=== PATIENT | male | born 1945 | race Caucasian/White ===

== ENCOUNTER 2023-08-28 13:04 | Inpatient (IN) | payer OTHER, MEDICAID ==
[~2023-08-28] VITALS: Ht 177.8 cm; Wt 63.0 kg
[~2023-08-28 13:04] MED LIST: ACET325T PO; AMIN30LI2 GT; AMIO200T66 GT; ASCO500T20 GT; BISA-79 PO; CHLO473M5 PO; COLL100 GT; DILT30TA35 PO; DIPH25CA83 GT; FINA-37 GT; GLUC1KIT IJ; HYT1 GT; IPRA3AMP9 INH; LACEYEO GT; MIDO10TA GT; MOM PO; MULT-1089 PO; NA P133E41 RC; NYST15PO2 TP; POLY17PO4 PO; SSNOVOLOG SUBCUT; ZINC100T2 GT; [UNRECOGNIZED DRUG - CODE] IV
[2023-08-28 13:05] VITALS: BP_SYST 126; PULSE 77; RESP 16; TEMP 98; O2SAT 98
[2023-08-28] MEDS ORDERED: IPRA3AMP9 INH (13:55)
[2023-08-28] MEDS ORDERED: TRAM50TA2 GT (13:55)
[2023-08-28 14:34] LABS: BASOPHILS % (AUTO) 0.2 % (0.0-2.0); EOSINOPHILS # (AUTO) 0.4 K/uL (0.0-0.4); EOSINOPHILS % (AUTO) 2.2 % (0.0-4.0); HEMATOCRIT 35.8 % (36-54); LYMPHOCYTES # (AUTO) 1.2 K/uL (1.0-5.5); LYMPHOCYTES % (AUTO) 6.3 % (20.5-51.5); MEAN CORPUSCULAR HEMOGLOBIN 28 pg (27-31); MEAN CORPUSCULAR HGB CONC 31 % (32-36); MEAN CORPUSCULAR VOLUME 91 fL (79.0-98.0); MONOCYTES % (AUTO) 5.7 % (1.7-9.3); NEUTROPHILS # (AUTO) 15.7 K/uL (1.8-7.7); NEUTROPHILS % (AUTO) 85.6 % (40.0-70.0); PLATELET COUNT (AUTO) 478 K/uL (130-430); RED BLOOD CELL COUNT(AUTO) 3.93 MIL/uL (4.2-6.2); RED CELL DISTRIBUTION WIDTH 19.6 % (9.0-15.0); WHITE BLOOD COUNT (AUTO) 18.4 K/uL (4.8-10.8)
[2023-08-28 14:57] LABS: PROTHROMBIN TIME 10.8 SECS (9.5-12.5)
[2023-08-28 15:06] LABS: ALBUMIN 2.4 g/dL (3.4-4.8); ANION GAP 11 (5-15); ASPARTATE AMINOTRANSFERASE 11 U/L (10-37); CALCIUM 11.6 mg/dL (8.4-11.0); CARBON DIOXIDE 24 mmol/L (23-29); CHLORIDE 115 mmol/L (98-107); CREATININE 2.76 mg/dL (0.55-1.30); GLUCOSE 127 mg/dL (74-106); POTASSIUM 5.6 mmol/L (3.5-5.1); SODIUM SERUM 150 mmol/L (136-145); TOTAL BILIRUBIN 0.2 mg/dL (0.0-1.0); TOTAL PROTEIN, SERUM 8.3 g/dL (6.4-8.3)
[2023-08-28 15:10] LABS: UREA NITROGEN, BLOOD 188 mg/dL (8-21)
[2023-08-28 15:33] LABS: ALANINE AMINOTRANSFERASE 13 U/L (12-78)
[2023-08-28] MEDS ORDERED: PIPERACILLIN/TAZO 4.5 GM in NS 100 ML IV ONE (15:45)
[2023-08-28] MEDS ORDERED: SODIUM POLYSTYRENE SULFONATE 15 GM/60 ML UDBTL PO ONE (15:45)
[2023-08-28] MEDS ORDERED: NS 500 ML IV ONE (15:45)
[2023-08-28] MEDS ORDERED: PIPERACILLIN/TAZOBACTAM 4.5 GM/VIAL (ZOSYN) IV ONE (16:25)
[2023-08-28] MEDS ORDERED: cefTRIAXone 1 GM VIAL IM ONE (17:00)
[2023-08-28] MEDS ORDERED: cefTRIAXone 1 GM in D5W 50 ML IV ONE (19:00)
[2023-08-28] MEDS ORDERED: cefTRIAXone 1 GM VIAL ONE (19:39)
[2023-08-28] MEDS: D5W 1,000 ML IV SCH (19:55)
[2023-08-28] MEDS ORDERED: SODIUM POLYSTYRENE SULFONATE 15 GM/60 ML UDBTL GT ONE (20:00)
[2023-08-28 20:45] VITALS: BP_SYST 124; PULSE 79; RESP 16; TEMP 97.5; O2SAT 98
[2023-08-28 21:11] VITALS: PULSE 79
[2023-08-28 21:14] VITALS: BP_SYST 104; PULSE 76; O2SAT 99
[2023-08-28 22:00] VITALS: O2SAT 98
[2023-08-28 23:43] VITALS: PULSE 82
[2023-08-29] VITALS (17 sets, daily range): BP systolic 118–131; PULSE 73–84; RESP 16–18; TEMP 97.3–98; O2SAT 95–99
[2023-08-29] MEDS ORDERED: cefTRIAXone 1 GM VIAL IM SCH (09:00)
[2023-08-29 09:25] LABS: BASOPHILS # (AUTO) 0.1 K/uL (0.0-0.2); BASOPHILS % (AUTO) 0.4 % (0.0-2.0); EOSINOPHILS # (AUTO) 0.3 K/uL (0.0-0.4); EOSINOPHILS % (AUTO) 1.5 % (0.0-4.0); HEMATOCRIT 36.2 % (36-54); HEMOGLOBIN 10.9 g/dL (14.0-18.0); MEAN CORPUSCULAR HEMOGLOBIN 27 pg (27-31); MEAN CORPUSCULAR HGB CONC 30 % (32-36); MEAN CORPUSCULAR VOLUME 91 fL (79.0-98.0); MONOCYTES % (AUTO) 5.1 % (1.7-9.3); NEUTROPHILS # (AUTO) 17.2 K/uL (1.8-7.7); PLATELET COUNT (AUTO) 438 K/uL (130-430); RED BLOOD CELL COUNT(AUTO) 3.98 MIL/uL (4.2-6.2); RED CELL DISTRIBUTION WIDTH 19.3 % (9.0-15.0); WHITE BLOOD COUNT (AUTO) 19.5 K/uL (4.8-10.8)
[2023-08-29] MEDS: D5W 1,000 ML IV SCH ×2 (09:39→21:03)
[2023-08-29 09:49] LABS: ALANINE AMINOTRANSFERASE 11 U/L (12-78); ALBUMIN 2.3 g/dL (3.4-4.8); ANION GAP 15 (5-15); ASPARTATE AMINOTRANSFERASE 9 U/L (10-37); CALCIUM 10.7 mg/dL (8.4-11.0); CARBON DIOXIDE 28 mmol/L (23-29); CHLORIDE 118 mmol/L (98-107); CREATININE 2.64 mg/dL (0.55-1.30); GLUCOSE 127 mg/dL (74-106); POTASSIUM 3.2 mmol/L (3.5-5.1); TOTAL BILIRUBIN 0.2 mg/dL (0.0-1.0)
[2023-08-29 09:51] LABS: SODIUM SERUM 161 mmol/L (136-145); UREA NITROGEN, BLOOD 154 mg/dL (8-21)
[2023-08-29] MEDS: MEROPENEM 1 GM in NS 100 ML IV SCH (12:38)
[2023-08-29] MEDS ORDERED: GENTAMICIN SULFATE 400 MG in NS 100 ML IV SCH (13:00)
[2023-08-29] MEDS ORDERED: ACETAMINOPHEN 325 MG TABLET PO PRN (17:00)
[2023-08-29] MEDS ORDERED: IPRATROPIUM/ALBUTEROL SULFATE 3 ML AMPUL.NEB (DUONEB) INH PRN (17:00)
[2023-08-29] MEDS ORDERED: traMADol HCL HCL 50 MG TABLET (ULTRAM) GT PRN (17:00)
[2023-08-29] MEDS ORDERED: BISACODYL 5 MG TABLET.DR (DULCOLAX) PO PRN (17:00)
[2023-08-29] MEDS ORDERED: DILTIAZEM HCL 30 MG TABLET PO PRN (17:00)
[2023-08-29] MEDS ORDERED: cefTRIAXone 1 GM in D5W 50 ML IV SCH (18:00)
[2023-08-29] MEDS: IPRATROPIUM/ALBUTEROL SULFATE 3 ML AMPUL.NEB (DUONEB) INH SCH (20:06)
[2023-08-29] MEDS: CHLORHEXIDINE GLUC 0.12% 15 ML MOUTHWASH UDC MM SCH (20:36)
[2023-08-29] MEDS: MIDODRINE HCL 5 MG TABLET (PROAMATINE) GT SCH (20:36)
[2023-08-29] MEDS: ASCORBIC ACID 500 MG TABLET GT SCH (20:37)
[2023-08-29 20:39] LABS: BILIRUBIN,URINE NEGATIVE (NEGATIVE); BLOOD, URINE 3+ (NEGATIVE); CLARITY/URINE CLEAR (CLEAR); COLOR,URINE YELLOW (YELLOW); GLUCOSE,URINE NEGATIVE (NEGATIVE); KETONES,URINE NEGATIVE (NEGATIVE); LEUKOCYTE ESTERASE ,URINE 3+ (NEGATIVE); NITRITE, URINE NEGATIVE (NEGATIVE); PROTEIN URINE 2+ (NEGATIVE); UROBILINOGEN,URINE 0.2 (0.2-1.0)
[2023-08-29] MEDS: TERAZOSIN HCL 1 MG CAPSULE (HYTRIN) GT SCH (20:57)
[2023-08-29 21:03] LABS: BACTERIA,URINE MODERATE /HPF (None Seen); RBC,URINE >100 /HPF (0-3); WBC,URINE >100 /HPF (0-3)
[2023-08-30] VITALS (19 sets, daily range): BP systolic 105–128; PULSE 60–98; RESP 16–17; TEMP 97–98; O2SAT 97–99
[2023-08-30] MEDS: IPRATROPIUM/ALBUTEROL SULFATE 3 ML AMPUL.NEB (DUONEB) INH SCH ×4 (00:20→19:49)
[2023-08-30] MEDS: D5W 1,000 ML IV SCH ×3 (06:06→23:37)
[2023-08-30 06:17] LABS: BASOPHILS % (AUTO) 0.3 % (0.0-2.0); EOSINOPHILS # (AUTO) 0.5 K/uL (0.0-0.4); EOSINOPHILS % (AUTO) 3.2 % (0.0-4.0); HEMATOCRIT 34.2 % (36-54); HEMOGLOBIN 10.6 g/dL (14.0-18.0); LYMPHOCYTES # (AUTO) 1.5 K/uL (1.0-5.5); LYMPHOCYTES % (AUTO) 9.4 % (20.5-51.5); MEAN CORPUSCULAR HEMOGLOBIN 28 pg (27-31); MEAN CORPUSCULAR HGB CONC 31 % (32-36); MEAN CORPUSCULAR VOLUME 90 fL (79.0-98.0); MONOCYTES # (AUTO) 0.8 K/uL (0.0-1.0); MONOCYTES % (AUTO) 4.9 % (1.7-9.3); NEUTROPHILS # (AUTO) 12.8 K/uL (1.8-7.7); NEUTROPHILS % (AUTO) 82.2 % (40.0-70.0); PLATELET COUNT (AUTO) 403 K/uL (130-430); RED CELL DISTRIBUTION WIDTH 19.3 % (9.0-15.0); WHITE BLOOD COUNT (AUTO) 15.5 K/uL (4.8-10.8)
[2023-08-30 07:02] LABS: ANION GAP 15 (5-15); CALCIUM 10.2 mg/dL (8.4-11.0); CARBON DIOXIDE 27 mmol/L (23-29); CHLORIDE 114 mmol/L (98-107); CREATININE 2.48 mg/dL (0.55-1.30); GLUCOSE 108 mg/dL (74-106); PHOSPHORUS 4.2 mg/dL (2.7-4.5); SODIUM SERUM 156 mmol/L (136-145)
[2023-08-30 09:28] LABS: GENTAMICIN,RANDOM > 12.0 ug/mL
[2023-08-30 09:30] LABS: POTASSIUM 2.9 mmol/L (3.5-5.1); UREA NITROGEN, BLOOD 121 mg/dL (8-21)
[2023-08-30] MEDS: MIDODRINE HCL 5 MG TABLET (PROAMATINE) GT SCH ×3 (09:48→22:51)
[2023-08-30] MEDS: MULTIVITAMINS TAB 1 TABLET PO SCH (09:49)
[2023-08-30] MEDS: AMIODARONE HCL 200 MG TABLET GT SCH (09:49)
[2023-08-30] MEDS: ASCORBIC ACID 500 MG TABLET GT SCH ×2 (09:49→22:47)
[2023-08-30] MEDS: CHLORHEXIDINE GLUC 0.12% 15 ML MOUTHWASH UDC MM SCH ×2 (09:52→22:52)
[2023-08-30] MEDS: FINASTERIDE 5 MG TABLET (PROSCAR) GT SCH (10:00)
[2023-08-30] MEDS: MEROPENEM 1 GM in NS 100 ML IV SCH ×4 (11:26→23:37)
[2023-08-30] MEDS ORDERED: POTASSIUM CHLORIDE 20 MEQ/PKT PACKET GT ONE (11:30)
[2023-08-30] MEDS: TERAZOSIN HCL 1 MG CAPSULE (HYTRIN) GT SCH (22:51)
[2023-08-31] VITALS (17 sets, daily range): BP systolic 95–132; PULSE 62–77; RESP 16–20; TEMP 97–98.6; O2SAT 93–100
[2023-08-31] MEDS: IPRATROPIUM/ALBUTEROL SULFATE 3 ML AMPUL.NEB (DUONEB) INH SCH ×4 (00:50→19:09)
[2023-08-31 05:34] LABS: BASOPHILS # (AUTO) 0.1 K/uL (0.0-0.2); BASOPHILS % (AUTO) 0.6 % (0.0-2.0); EOSINOPHILS # (AUTO) 0.6 K/uL (0.0-0.4); EOSINOPHILS % (AUTO) 4.3 % (0.0-4.0); HEMOGLOBIN 10.7 g/dL (14.0-18.0); LYMPHOCYTES # (AUTO) 1.4 K/uL (1.0-5.5); LYMPHOCYTES % (AUTO) 9.7 % (20.5-51.5); MEAN CORPUSCULAR HEMOGLOBIN 27 pg (27-31); MEAN CORPUSCULAR HGB CONC 31 % (32-36); MEAN CORPUSCULAR VOLUME 90 fL (79.0-98.0); MONOCYTES # (AUTO) 0.8 K/uL (0.0-1.0); MONOCYTES % (AUTO) 5.7 % (1.7-9.3); NEUTROPHILS # (AUTO) 11.3 K/uL (1.8-7.7); NEUTROPHILS % (AUTO) 79.7 % (40.0-70.0); PLATELET COUNT (AUTO) 369 K/uL (130-430); RED BLOOD CELL COUNT(AUTO) 3.89 MIL/uL (4.2-6.2); RED CELL DISTRIBUTION WIDTH 19.4 % (9.0-15.0); WHITE BLOOD COUNT (AUTO) 14.2 K/uL (4.8-10.8)
[2023-08-31 07:15] LABS: ANION GAP 11 (5-15); CALCIUM 9.6 mg/dL (8.4-11.0); CARBON DIOXIDE 26 mmol/L (23-29); CHLORIDE 110 mmol/L (98-107); CREATININE 2.86 mg/dL (0.55-1.30); GLUCOSE 111 mg/dL (74-106); SODIUM SERUM 147 mmol/L (136-145)
[2023-08-31 07:21] LABS: UREA NITROGEN, BLOOD 118 mg/dL (8-21)
[2023-08-31] MEDS: CHLORHEXIDINE GLUC 0.12% 15 ML MOUTHWASH UDC MM SCH ×2 (09:00→20:43)
[2023-08-31] MEDS: MULTIVITAMINS TAB 1 TABLET PO SCH (10:00)
[2023-08-31] MEDS: MIDODRINE HCL 5 MG TABLET (PROAMATINE) GT SCH ×3 (10:00→20:43)
[2023-08-31] MEDS: ASCORBIC ACID 500 MG TABLET GT SCH ×2 (10:00→20:43)
[2023-08-31] MEDS: AMIODARONE HCL 200 MG TABLET GT SCH (10:01)
[2023-08-31] MEDS: FINASTERIDE 5 MG TABLET (PROSCAR) GT SCH (10:02)
[2023-08-31] MEDS ORDERED: POTASSIUM CHLORIDE 20 MEQ/PKT PACKET GT ONE (12:45)
[2023-08-31] MEDS: D5W 1,000 ML IV SCH (12:59)
[2023-08-31] MEDS: MEROPENEM 1 GM in NS 100 ML IV SCH (12:59)
[2023-08-31] MEDS ORDERED: MENTHOL/ZINC OXIDE 113 GM OINT. TP ONE (13:00)
[2023-08-31 14:27] LABS: GENTAMICIN,RANDOM 6.3 ug/mL
[2023-08-31] MEDS: TERAZOSIN HCL 1 MG CAPSULE (HYTRIN) GT SCH (20:43)
[2023-08-31] MEDS: MENTHOL/ZINC OXIDE 113 GM OINT. TP SCH ×2 (20:44→20:45)
[2023-09-01] VITALS (13 sets, daily range): BP systolic 118–147; PULSE 56–77; RESP 16–32; TEMP 96.8–99; O2SAT 94–99
[2023-09-01] MEDS: IPRATROPIUM/ALBUTEROL SULFATE 3 ML AMPUL.NEB (DUONEB) INH SCH ×4 (00:28→20:07)
[2023-09-01] MEDS: D5W 1,000 ML IV SCH ×3 (03:39→18:19)
[2023-09-01] MEDS: CHLORHEXIDINE GLUC 0.12% 15 ML MOUTHWASH UDC MM SCH ×2 (09:00→21:09)
[2023-09-01] MEDS: MIDODRINE HCL 5 MG TABLET (PROAMATINE) GT SCH ×3 (10:07→21:09)
[2023-09-01] MEDS: AMIODARONE HCL 200 MG TABLET GT SCH (10:07)
[2023-09-01] MEDS: MULTIVITAMINS TAB 1 TABLET PO SCH (10:07)
[2023-09-01] MEDS: FINASTERIDE 5 MG TABLET (PROSCAR) GT SCH (10:08)
[2023-09-01] MEDS: ASCORBIC ACID 500 MG TABLET GT SCH ×2 (10:08→21:09)
[2023-09-01] MEDS: MENTHOL/ZINC OXIDE 113 GM OINT. TP SCH ×2 (10:09→21:09)
[2023-09-01] MEDS ORDERED: FLUCONAZOLE 100 MG TABLET (DIFLUCAN) PO ONE (15:00)
[2023-09-01 15:30] LABS: BASOPHILS # (AUTO) 0.1 K/uL (0.0-0.2); BASOPHILS % (AUTO) 0.5 % (0.0-2.0); EOSINOPHILS # (AUTO) 0.6 K/uL (0.0-0.4); EOSINOPHILS % (AUTO) 5.8 % (0.0-4.0); HEMATOCRIT 31.7 % (36-54); LYMPHOCYTES # (AUTO) 1.3 K/uL (1.0-5.5); LYMPHOCYTES % (AUTO) 12.9 % (20.5-51.5); MEAN CORPUSCULAR HEMOGLOBIN 28 pg (27-31); MEAN CORPUSCULAR HGB CONC 32 % (32-36); MEAN CORPUSCULAR VOLUME 89 fL (79.0-98.0); MONOCYTES # (AUTO) 0.9 K/uL (0.0-1.0); MONOCYTES % (AUTO) 8.7 % (1.7-9.3); NEUTROPHILS # (AUTO) 7.6 K/uL (1.8-7.7); NEUTROPHILS % (AUTO) 72.1 % (40.0-70.0); PLATELET COUNT (AUTO) 301 K/uL (130-430); RED BLOOD CELL COUNT(AUTO) 3.57 MIL/uL (4.2-6.2); RED CELL DISTRIBUTION WIDTH 18.8 % (9.0-15.0); WHITE BLOOD COUNT (AUTO) 10.5 K/uL (4.8-10.8)
[2023-09-01 15:46] LABS: ANION GAP 9 (5-15); CARBON DIOXIDE 26 mmol/L (23-29); CHLORIDE 107 mmol/L (98-107); CREATININE 2.74 mg/dL (0.55-1.30); GLUCOSE 106 mg/dL (74-106); POTASSIUM 3.7 mmol/L (3.5-5.1); SODIUM SERUM 142 mmol/L (136-145); UREA NITROGEN, BLOOD 89 mg/dL (8-21)
[2023-09-01] MEDS ORDERED: FLUCONAZOLE 100 MG TABLET (DIFLUCAN) GT ONE (16:30)
[2023-09-01] MEDS: TERAZOSIN HCL 1 MG CAPSULE (HYTRIN) GT SCH (21:09)
[2023-09-02] VITALS (14 sets, daily range): BP systolic 115–151; PULSE 66–90; RESP 16; TEMP 97.6–98.3; O2SAT 95–96
[2023-09-02] MEDS: D5W 1,000 ML IV SCH ×3 (00:29→21:03)
[2023-09-02] MEDS: IPRATROPIUM/ALBUTEROL SULFATE 3 ML AMPUL.NEB (DUONEB) INH SCH ×4 (01:40→20:07)
[2023-09-02 05:50] LABS: BASOPHILS # (AUTO) 0.1 K/uL (0.0-0.2); BASOPHILS % (AUTO) 0.6 % (0.0-2.0); EOSINOPHILS # (AUTO) 0.7 K/uL (0.0-0.4); EOSINOPHILS % (AUTO) 6.2 % (0.0-4.0); HEMOGLOBIN 10.9 g/dL (14.0-18.0); LYMPHOCYTES # (AUTO) 1.5 K/uL (1.0-5.5); LYMPHOCYTES % (AUTO) 13.6 % (20.5-51.5); MEAN CORPUSCULAR HEMOGLOBIN 29 pg (27-31); MEAN CORPUSCULAR HGB CONC 32 % (32-36); MEAN CORPUSCULAR VOLUME 90 fL (79.0-98.0); MONOCYTES # (AUTO) 0.7 K/uL (0.0-1.0); MONOCYTES % (AUTO) 6.8 % (1.7-9.3); NEUTROPHILS # (AUTO) 7.9 K/uL (1.8-7.7); NEUTROPHILS % (AUTO) 72.8 % (40.0-70.0); PLATELET COUNT (AUTO) 309 K/uL (130-430); RED BLOOD CELL COUNT(AUTO) 3.79 MIL/uL (4.2-6.2); RED CELL DISTRIBUTION WIDTH 19.1 % (9.0-15.0); WHITE BLOOD COUNT (AUTO) 10.8 K/uL (4.8-10.8)
[2023-09-02 06:02] LABS: ANION GAP 9 (5-15); CALCIUM 10.1 mg/dL (8.4-11.0); CARBON DIOXIDE 26 mmol/L (23-29); CHLORIDE 102 mmol/L (98-107); CREATININE 2.62 mg/dL (0.55-1.30); GLUCOSE 122 mg/dL (74-106); POTASSIUM 3.5 mmol/L (3.5-5.1); SODIUM SERUM 137 mmol/L (136-145); UREA NITROGEN, BLOOD 82 mg/dL (8-21)
[2023-09-02] MEDS: CHLORHEXIDINE GLUC 0.12% 15 ML MOUTHWASH UDC MM SCH ×2 (09:45→20:57)
[2023-09-02] MEDS: AMIODARONE HCL 200 MG TABLET GT SCH (09:56)
[2023-09-02] MEDS: FINASTERIDE 5 MG TABLET (PROSCAR) GT SCH (09:57)
[2023-09-02] MEDS: MULTIVITAMINS TAB 1 TABLET GT SCH (09:57)
[2023-09-02] MEDS: FLUCONAZOLE 100 MG TABLET (DIFLUCAN) GT SCH (09:57)
[2023-09-02] MEDS: MIDODRINE HCL 5 MG TABLET (PROAMATINE) GT SCH ×3 (09:57→20:56)
[2023-09-02] MEDS: ASCORBIC ACID 500 MG TABLET GT SCH ×2 (09:57→20:56)
[2023-09-02] MEDS: MENTHOL/ZINC OXIDE 113 GM OINT. TP SCH ×2 (09:59→20:57)
[2023-09-02] MEDS: TERAZOSIN HCL 1 MG CAPSULE (HYTRIN) GT SCH (20:57)
[2023-09-03] VITALS (15 sets, daily range): BP systolic 97–119; PULSE 63–98; RESP 15–20; TEMP 97.2–98.6; O2SAT 96–100
[2023-09-03 06:44] LABS: BASOPHILS % (AUTO) 0.3 % (0.0-2.0); EOSINOPHILS # (AUTO) 0.5 K/uL (0.0-0.4); EOSINOPHILS % (AUTO) 4.9 % (0.0-4.0); HEMATOCRIT 33.1 % (36-54); HEMOGLOBIN 10.4 g/dL (14.0-18.0); LYMPHOCYTES # (AUTO) 1.2 K/uL (1.0-5.5); LYMPHOCYTES % (AUTO) 11.5 % (20.5-51.5); MEAN CORPUSCULAR HEMOGLOBIN 28 pg (27-31); MEAN CORPUSCULAR HGB CONC 31 % (32-36); MEAN CORPUSCULAR VOLUME 89 fL (79.0-98.0); MONOCYTES # (AUTO) 0.7 K/uL (0.0-1.0); MONOCYTES % (AUTO) 6.5 % (1.7-9.3); NEUTROPHILS # (AUTO) 7.9 K/uL (1.8-7.7); NEUTROPHILS % (AUTO) 76.8 % (40.0-70.0); PLATELET COUNT (AUTO) 267 K/uL (130-430); RED CELL DISTRIBUTION WIDTH 18.8 % (9.0-15.0); WHITE BLOOD COUNT (AUTO) 10.3 K/uL (4.8-10.8)
[2023-09-03 07:42] LABS: ANION GAP 12 (5-15); CALCIUM 11.2 mg/dL (8.4-11.0); CARBON DIOXIDE 27 mmol/L (23-29); CHLORIDE 104 mmol/L (98-107); GLUCOSE 114 mg/dL (74-106); POTASSIUM 3.5 mmol/L (3.5-5.1); SODIUM SERUM 143 mmol/L (136-145); UREA NITROGEN, BLOOD 68 mg/dL (8-21)
[2023-09-03 07:43] LABS: ALANINE AMINOTRANSFERASE 18 U/L (12-78); ALBUMIN 2.3 g/dL (3.4-4.8); ASPARTATE AMINOTRANSFERASE 18 U/L (10-37); CREATININE 2.45 mg/dL (0.55-1.30); TOTAL BILIRUBIN 0.1 mg/dL (0.0-1.0); TOTAL PROTEIN, SERUM 7.3 g/dL (6.4-8.3)
[2023-09-03] MEDS: IPRATROPIUM/ALBUTEROL SULFATE 3 ML AMPUL.NEB (DUONEB) INH SCH ×3 (07:56→19:49)
[2023-09-03] MEDS: ASCORBIC ACID 500 MG TABLET GT SCH ×2 (09:07→20:59)
[2023-09-03] MEDS: FLUCONAZOLE 100 MG TABLET (DIFLUCAN) GT SCH (09:07)
[2023-09-03] MEDS: MULTIVITAMINS TAB 1 TABLET GT SCH (09:07)
[2023-09-03] MEDS: AMIODARONE HCL 200 MG TABLET GT SCH (09:08)
[2023-09-03] MEDS: FINASTERIDE 5 MG TABLET (PROSCAR) GT SCH (09:14)
[2023-09-03] MEDS: CHLORHEXIDINE GLUC 0.12% 15 ML MOUTHWASH UDC MM SCH ×2 (09:14→21:00)
[2023-09-03] MEDS: MIDODRINE HCL 5 MG TABLET (PROAMATINE) GT SCH ×3 (09:14→20:59)
[2023-09-03] MEDS: MENTHOL/ZINC OXIDE 113 GM OINT. TP SCH ×2 (09:15→21:00)
[2023-09-03] MEDS ORDERED: DIPHENHYDRAMINE INJ 50 MG/ML VIAL IM PRN (13:15)
[2023-09-03] MEDS: D5W 1,000 ML IV SCH ×2 (14:08→20:19)
[2023-09-03] MEDS: CALCITONIN SALMON,SYNTHETIC 200 UNITS/ML VIAL SUBCUT SCH (20:59)
[2023-09-03] MEDS: TERAZOSIN HCL 1 MG CAPSULE (HYTRIN) GT SCH (21:02)
[2023-09-03] MEDS: TOBRAMYCIN 300MG/5ML INH AMPUL.NEB INH SCH (23:11)
[2023-09-04] VITALS (16 sets, daily range): BP systolic 98–121; PULSE 61–97; RESP 16–19; TEMP 97–98.3; O2SAT 96–99
[2023-09-04] MEDS: IPRATROPIUM/ALBUTEROL SULFATE 3 ML AMPUL.NEB (DUONEB) INH SCH ×4 (01:12→19:58)
[2023-09-04] MEDS: D5W 1,000 ML IV SCH ×2 (02:17→20:36)
[2023-09-04 06:43] LABS: BASOPHILS # (AUTO) 0.1 K/uL (0.0-0.2); BASOPHILS % (AUTO) 0.5 % (0.0-2.0); EOSINOPHILS # (AUTO) 0.3 K/uL (0.0-0.4); EOSINOPHILS % (AUTO) 2.4 % (0.0-4.0); HEMATOCRIT 31.8 % (36-54); LYMPHOCYTES # (AUTO) 1.1 K/uL (1.0-5.5); LYMPHOCYTES % (AUTO) 9.5 % (20.5-51.5); MEAN CORPUSCULAR HEMOGLOBIN 28 pg (27-31); MEAN CORPUSCULAR HGB CONC 32 % (32-36); MEAN CORPUSCULAR VOLUME 89 fL (79.0-98.0); MONOCYTES # (AUTO) 0.8 K/uL (0.0-1.0); MONOCYTES % (AUTO) 6.6 % (1.7-9.3); NEUTROPHILS # (AUTO) 9.6 K/uL (1.8-7.7); PLATELET COUNT (AUTO) 240 K/uL (130-430); RED BLOOD CELL COUNT(AUTO) 3.56 MIL/uL (4.2-6.2); RED CELL DISTRIBUTION WIDTH 18.5 % (9.0-15.0); WHITE BLOOD COUNT (AUTO) 11.8 K/uL (4.8-10.8)
[2023-09-04 07:20] LABS: ANION GAP 10 (5-15); CALCIUM 11.3 mg/dL (8.4-11.0); CARBON DIOXIDE 26 mmol/L (23-29); CHLORIDE 105 mmol/L (98-107); CREATININE 2.48 mg/dL (0.55-1.30); GLUCOSE 118 mg/dL (74-106); POTASSIUM 3.7 mmol/L (3.5-5.1); SODIUM SERUM 141 mmol/L (136-145); UREA NITROGEN, BLOOD 60 mg/dL (8-21)
[2023-09-04] MEDS: TOBRAMYCIN 300MG/5ML INH AMPUL.NEB INH SCH ×2 (07:30→19:59)
[2023-09-04] MEDS: ASCORBIC ACID 500 MG TABLET GT SCH ×2 (09:00→19:56)
[2023-09-04] MEDS: FINASTERIDE 5 MG TABLET (PROSCAR) GT SCH (09:00)
[2023-09-04] MEDS: FLUCONAZOLE 100 MG TABLET (DIFLUCAN) GT SCH (09:00)
[2023-09-04] MEDS: MIDODRINE HCL 5 MG TABLET (PROAMATINE) GT SCH ×2 (09:00→20:34)
[2023-09-04] MEDS: CALCITONIN SALMON,SYNTHETIC 200 UNITS/ML VIAL SUBCUT SCH ×2 (09:00→20:34)
[2023-09-04] MEDS: AMIODARONE HCL 200 MG TABLET GT SCH (09:00)
[2023-09-04] MEDS: CHLORHEXIDINE GLUC 0.12% 15 ML MOUTHWASH UDC MM SCH ×2 (09:00→20:34)
[2023-09-04] MEDS: MENTHOL/ZINC OXIDE 113 GM OINT. TP SCH ×2 (09:00→20:35)
[2023-09-04] MEDS: MULTIVITAMINS TAB 1 TABLET GT SCH (09:00)
[2023-09-04] MEDS: levoFLOXacin 500 MG TABLET PO SCH (10:00)
[2023-09-04] MEDS ORDERED: LIDOCAINE 1%, 20 ML MDV 20 ML ONE (13:47)
[2023-09-04] MEDS ORDERED: PAMIDRONATE DISODIUM 60 MG in NACL 0.9% 1,000 ML IV ONE (14:00)
[2023-09-04] MEDS ORDERED: fentaNYL CITRATE/PF 100 MCG/2 ML AMP ONE (14:21)
[2023-09-04] MEDS: TERAZOSIN HCL 1 MG CAPSULE (HYTRIN) GT SCH (20:34)
[2023-09-05] VITALS (19 sets, daily range): BP systolic 108–126; PULSE 65–94; RESP 16–20; TEMP 97–100.3; O2SAT 96–100
[2023-09-05] MEDS: IPRATROPIUM/ALBUTEROL SULFATE 3 ML AMPUL.NEB (DUONEB) INH SCH ×4 (01:06→19:40)
[2023-09-05 06:27] LABS: BASOPHILS # (AUTO) 0.1 K/uL (0.0-0.2); BASOPHILS % (AUTO) 0.8 % (0.0-2.0); EOSINOPHILS # (AUTO) 0.3 K/uL (0.0-0.4); EOSINOPHILS % (AUTO) 3.6 % (0.0-4.0); HEMOGLOBIN 9.6 g/dL (14.0-18.0); LYMPHOCYTES # (AUTO) 1.1 K/uL (1.0-5.5); LYMPHOCYTES % (AUTO) 11.7 % (20.5-51.5); MEAN CORPUSCULAR HEMOGLOBIN 28 pg (27-31); MEAN CORPUSCULAR HGB CONC 31 % (32-36); MEAN CORPUSCULAR VOLUME 89 fL (79.0-98.0); MONOCYTES # (AUTO) 0.7 K/uL (0.0-1.0); MONOCYTES % (AUTO) 8.2 % (1.7-9.3); NEUTROPHILS # (AUTO) 6.8 K/uL (1.8-7.7); NEUTROPHILS % (AUTO) 75.7 % (40.0-70.0); PLATELET COUNT (AUTO) 235 K/uL (130-430); RED BLOOD CELL COUNT(AUTO) 3.48 MIL/uL (4.2-6.2); RED CELL DISTRIBUTION WIDTH 18.2 % (9.0-15.0)
[2023-09-05] MEDS: D5W 1,000 ML IV SCH ×3 (06:34→19:04)
[2023-09-05 06:52] LABS: ANION GAP 12 (5-15); CALCIUM 10.5 mg/dL (8.4-11.0); CARBON DIOXIDE 25 mmol/L (23-29); CHLORIDE 105 mmol/L (98-107); CREATININE 2.26 mg/dL (0.55-1.30); GLUCOSE 112 mg/dL (74-106); PHOSPHORUS 3.4 mg/dL (2.7-4.5); POTASSIUM 3.2 mmol/L (3.5-5.1); SODIUM SERUM 142 mmol/L (136-145); UREA NITROGEN, BLOOD 53 mg/dL (8-21)
[2023-09-05] MEDS: TOBRAMYCIN 300MG/5ML INH AMPUL.NEB INH SCH ×2 (07:32→19:55)
[2023-09-05] MEDS: MULTIVITAMINS TAB 1 TABLET GT SCH (08:22)
[2023-09-05] MEDS: MIDODRINE HCL 5 MG TABLET (PROAMATINE) GT SCH ×3 (08:22→21:29)
[2023-09-05] MEDS: FLUCONAZOLE 100 MG TABLET (DIFLUCAN) GT SCH (08:22)
[2023-09-05] MEDS: ASCORBIC ACID 500 MG TABLET GT SCH ×2 (08:22→21:28)
[2023-09-05] MEDS: AMIODARONE HCL 200 MG TABLET GT SCH (08:23)
[2023-09-05] MEDS: FINASTERIDE 5 MG TABLET (PROSCAR) GT SCH (08:27)
[2023-09-05] MEDS: CHLORHEXIDINE GLUC 0.12% 15 ML MOUTHWASH UDC MM SCH ×2 (08:32→21:29)
[2023-09-05] MEDS: MENTHOL/ZINC OXIDE 113 GM OINT. TP SCH ×2 (08:32→21:38)
[2023-09-05] MEDS: CALCITONIN SALMON,SYNTHETIC 200 UNITS/ML VIAL SUBCUT SCH ×2 (08:33→21:41)
[2023-09-05] MEDS: levoFLOXacin 500 MG TABLET PO SCH (09:03)
[2023-09-05] MEDS: POTASSIUM CHLORIDE 20 MEQ/PKT PACKET GT PRN (14:52)
[2023-09-05] MEDS: TERAZOSIN HCL 1 MG CAPSULE (HYTRIN) GT SCH (22:15)
[2023-09-06] VITALS (14 sets, daily range): BP systolic 109–129; PULSE 65–81; RESP 18–22; TEMP 97.2–98.9; O2SAT 96–100
[2023-09-06] MEDS: IPRATROPIUM/ALBUTEROL SULFATE 3 ML AMPUL.NEB (DUONEB) INH SCH ×3 (01:11→13:40)
[2023-09-06] MEDS: TOBRAMYCIN 300MG/5ML INH AMPUL.NEB INH SCH (07:50)
[2023-09-06 09:37] LABS: ANION GAP 14 (5-15); CALCIUM 10.8 mg/dL (8.4-11.0); CARBON DIOXIDE 22 mmol/L (23-29); CHLORIDE 107 mmol/L (98-107); GLUCOSE 128 mg/dL (74-106); POTASSIUM 3.1 mmol/L (3.5-5.1); SODIUM SERUM 143 mmol/L (136-145); UREA NITROGEN, BLOOD 45 mg/dL (8-21)
[2023-09-06] MEDS: MIDODRINE HCL 5 MG TABLET (PROAMATINE) GT SCH (10:00)
[2023-09-06] MEDS: MULTIVITAMINS TAB 1 TABLET GT SCH (10:00)
[2023-09-06] MEDS: levoFLOXacin 500 MG TABLET PO SCH (10:00)
[2023-09-06] MEDS: FLUCONAZOLE 100 MG TABLET (DIFLUCAN) GT SCH (10:00)
[2023-09-06] MEDS: ASCORBIC ACID 500 MG TABLET GT SCH (10:00)
[2023-09-06] MEDS: AMIODARONE HCL 200 MG TABLET GT SCH (10:02)
[2023-09-06] MEDS: CALCITONIN SALMON,SYNTHETIC 200 UNITS/ML VIAL SUBCUT SCH (10:06)
[2023-09-06] MEDS: CHLORHEXIDINE GLUC 0.12% 15 ML MOUTHWASH UDC MM SCH (10:06)
[2023-09-06] MEDS: FINASTERIDE 5 MG TABLET (PROSCAR) GT SCH (10:14)
[2023-09-06] MEDS: MENTHOL/ZINC OXIDE 113 GM OINT. TP SCH (10:15)
[2023-09-06] MEDS: D5W 1,000 ML IV SCH (10:17)
[2023-09-06] MEDS: POTASSIUM CHLORIDE 20 MEQ/PKT PACKET GT PRN (11:54)
== END 2023-09-06 16:25 | DRG 870 ==
LOC: SED 13:04 → STU 18:24
PROVIDERS: ADMIT Internal Medicine; ATTEND Internal Medicine
PROC: 5A1955Z Respiratory Ventilation, Greater than 96 Consecutive Hours (ICD-10-PCS; principal; 2023-08-28)
PROC: 0T943ZZ Drainage of Left Kidney Pelvis, Percutaneous Approach (ICD-10-PCS; 2023-09-04)
DX: A41.9 Sepsis, unspecified organism (principal); E43 Unspecified severe protein-calorie malnutrition; J15.1 Pneumonia due to Pseudomonas; J96.90 Respiratory failure, unspecified, unspecified whether with hypoxia or hypercapnia; N17.9 Acute kidney failure, unspecified; Z99.11 Dependence on respirator [ventilator] status; N20.2 Calculus of kidney with calculus of ureter; Z68.1 Body mass index [BMI] 19.9 or less, adult; N39.0 Urinary tract infection, site not specified; N99.522 Malfunction of incontinent external stoma of urinary tract; L89.152 Pressure ulcer of sacral region, stage 2; E86.0 Dehydration; E83.52 Hypercalcemia; E11.9 Type 2 diabetes mellitus without complications; Y82.8 Other medical devices associated with adverse incidents; N40.1 Benign prostatic hyperplasia with lower urinary tract symptoms; E87.5 Hyperkalemia; I10 Essential (primary) hypertension; Z88.2 Allergy status to sulfonamides; Z79.899 Other long term (current) drug therapy; Z79.4 Long term (current) use of insulin; Y92.89 Other specified places as the place of occurrence of the external cause; Z87.440 Personal history of urinary (tract) infections; Z95.0 Presence of cardiac pacemaker
CPT/HCPCS: 36415; 50432; 71045; 74150-TC; 76376; 77012; 80048; 80053; 80170; 81000; 81001; 81015; 82306; 83605; 83735; 83970; 84100; 85025; 85610-TC; 85730-TC; 87070-TC; 87081; 87086; 87205-TC; 93005; 94002; 94003; 94640; 94760; 96365; 96367; 97110-GP; 99285; C1750; C1769; G0378; J0630; J0696; J1580; J2001; J2185; J2430; J2543; J3010; J3260; J7030; J7060